=== PATIENT | male | born 1985 | race Native Hawaiian/Other Pacific Islander ===

== ENCOUNTER 2017-01-07 19:26 | Emergency (ER) | payer OTHER ==
[2017-01-07 19:30] VITALS: BP 138/85; PULSE 84; RESP 16; TEMP 98.9; O2SAT 98
[2017-01-07] MEDS ORDERED: Naproxen 500 MG TAB PO ONE (19:38)
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
== END 2017-01-07 21:06 | disposition home or self-care (01) ==
LOC: H.ER 19:26
DX: S39.011A Strain of muscle, fascia and tendon of abdomen, initial encounter (principal); V79.9XXA Bus occupant (driver) (passenger) injured in unspecified traffic accident, initial encounter